=== PATIENT | male | born 1950 | race Caucasian/White ===

== ENCOUNTER 2019-09-07 09:00 | Emergency (ER) | payer OTHER ==
[~2019-09-07] VITALS: Ht 167.6 cm; Wt 72.6 kg
== END 2019-09-07 19:24 | disposition home or self-care (01) ==
LOC: ER 09:00
DX: N39.0 Urinary tract infection, site not specified (principal); R31.0 Gross hematuria; N13.2 Hydronephrosis with renal and ureteral calculous obstruction; N26.1 Atrophy of kidney (terminal)

== ENCOUNTER 2019-12-26 08:22 | Emergency (ER) | payer OTHER ==
[~2019-12-26] VITALS: Ht 167.6 cm; Wt 81.6 kg
== END 2019-12-26 13:53 | disposition home or self-care (01) ==
LOC: ER 08:22
DX: R31.0 Gross hematuria (principal); N32.89 Other specified disorders of bladder; I10 Essential (primary) hypertension